=== PATIENT | female | born 1955 | race Caucasian/White ===

== ENCOUNTER 2023-12-17 14:51 | Observation (INO) | payer MEDICARE, SELFPAY ==
--- NOTE | ~2023-12-17 | XR_ITS ---
EXAMINATION: XR chest 1V Exam Date/Time: 12/17/2023 18:35 CDT HISTORY: AMS, rule out infection Comparison: None. RESULT: Lines, tubes, and devices: Multiple surgical clips overlying the right hemithorax. Lungs and pleura: Left lung hyperexpansion. Right hemithorax opacification. Cardiomediastinal silhouette: Rightward shift of the trachea and mediastinum. Other: No acute osseous or upper abdominal finding. Possible renal or gallbladder calcification of t he right upper quadrant. IMPRESSION: No acute cardiopulmonary process. Right hemithorax changes likely from prior right lobectomy, correla te with surgical history. Reviewed, dictated and finalized at location K. IMPRESSION: No acute cardiopulmonary process. Right hemithorax changes likely from prior ri ght lobectomy, correlate with surgical history.
--- NOTE | ~2023-12-17 | US_ITS ---
EXAMINATION: US abdomen limited DATE: 12/19/2023 16:00 INDICATION: Hyperbilirubinemia. TECHNIQUE: Multiple grayscale and Doppler ultrasound images of the abdomen were obtained. COMPARISON: None FINDINGS: The visualized portion of the head of the pancreas is normal. There is a 4.7 cm cyst in the liver. The main portal vein is not visualized. There are gallstones in the gallbladder, which is nor mal in size. Gallbladder wall thickening is noted. There is no sonographic Johnson's sign. The common duct is normal and measures 3 mm. IMPRESSION: 1. Cholelithiasis and gallbladder wall thickening, but no gallbladder distention or sonographic Aidan y sign to suggest acute cholecystitis. Gallbladder wall thickening may be seen with chronic liver dis ease, chronic cholecystitis, or interstitial edema. 2. Main portal vein not visualized. Consider abdomen CT with contrast. Reviewed, dictated and finalized at location E. IMPRESSION: 1. Cholelithiasis and gallbladder wall thickening, but no gallbladder distentio n or sonographic Johnson sign to suggest acute cholecystitis. Gallbladder wall t hickening may be seen with chronic liver disease, chronic cholecystitis, or int erstitial edema. 2. Main portal vein not visualized. Consider abdomen CT with contrast.
--- NOTE | ~2023-12-17 | CT_ITS ---
EXAMINATION: CT brain wo con DATE: 12/17/2023 18:38 INDICATION: AMS . TECHNIQUE: Computed tomography (CT) of the head was performed without intravenous contrast. The mA wa s adjusted according to patient size. Iterative reconstruction technique was employed. The dose-lengt h product was 605.33 mGy-cm. COMPARISON: None. FINDINGS: No acute intracranial hemorrhage or extra-axial fluid collection. No hydrocephalus, mass, or herniation. No acute ischemic infarct. Unremarkable dural venous sinus attenuation. No acute osseous abnormality. The aerated spaces are clear. Mild atrophy and chronic white matter change. Atherosclerotic intracranial calcification. IMPRESSION: No acute intracranial process. Reviewed, dictated and finalized at location K.
[2023-12-17 14:54] VITALS: BP 136/82; PULSE 79; RESP 20; TEMP 36.7; O2SAT 97
[2023-12-17 18:05] VITALS: O2SAT 92
--- NOTE | 2023-12-17 18:16 | ECG_ITS ---
SEE SCANNED COPY FOR CONFIRMED REPORT MTDD
--- NOTE | 2023-12-17 18:16 | ED.GENADULT ---
HPI - General Adult General Chief complaint: Recheck/Abnormal Lab/Rx Stated complaint: abnormal labs Time Seen by Provider: 12/17/23 17:58 Source: patient and family Mode of arrival: ambulatory Limitations: altered mental status History of Present Illness HPI narrative: This is a 68-year-old female with PMH of CKD, diabetes mellitus, cirrhosis who presents to the ED for chief complaint of altered mental status and 2 recent falls. She resides and assisted living. She is here with her daughter who is supplementing history. Daughter states that the patient has been somewhat confused over the past few days. Reports that she has had troubles with daily tasks such as going to the bathroom which is not normal for her. She also reports that patient has been a little bit confused about situation, as well as seeming a bit wobbly. Daughter states nursing staff told her that patient had 2 falls in the last week, 1 of which were she rolled out of bed. There here after getting outpatient labs with an elevated ammonia level. She has an ammonia level on her my chart of 198. Daughter is also concerned that her GFR is decreasing overall. Patient denies any pain. She is not quite sure why she is here. Denies fevers, chills, nausea vomiting, chest pain, back pain, numbness, weakness. Related Data Home Medications Medication Instructions Recorded Confirmed acetaminophen 325 mg tablet 650 mg PO Q6H PRN Pain, Mild 12/17/23 12/17/23 cyanocobalamin (vitamin B-12) 1,000 mcg PO DAILY 12/17/23 12/17/23 1,000 mcg sublingual tablet donepezil 5 mg tablet 5 mg PO HS 12/17/23 12/17/23 folic acid 1 mg tablet 1 mg PO DAILY 12/17/23 12/17/23 furosemide 40 mg tablet 40 mg PO DAILY 12/17/23 12/17/23 lactulose 10 gram/15 mL oral 10 g PO EVERY OTHER DAY 12/17/23 12/17/23 solution (Enulose) metformin 750 mg tablet,extended 750 mg PO BID 12/17/23 12/17/23 release 24 hr metoprolol tartrate 50 mg tablet 50 mg PO BID 12/17/23 12/17/23 potassium chloride 10 mEq 10 meq PO AC 12/17/23 12/17/23 tablet,extended release(part/cryst) risperidone 0.5 mg tablet 0.5 mg PO HS 12/17/23 12/17/23 rosuvastatin 5 mg tablet 1 mg PO DAILY 12/17/23 12/17/23 sitagliptin phosphate 50 mg tablet 50 mg PO AC 12/17/23 12/17/23 (Januvia) Allergies Allergy/AdvReac Type Severity Reaction Status Date / Time No Known Allergies Allergy Verified 12/17/23 23:12 Review of Systems Review of Systems: All systems as dictated in [facility] Social History Social History Alcohol intake: former Substance use: never Substance use type: does not use Do You Feel Safe in your Home?: Yes Lack of Transportation: No Lack of Food: Never True Current Housing: I Have Housing Concerned About Future Housing: No Difficulty Paying Gas/Electric Bills: No Difficulty Paying for Meds: No Currently Unemployed: No Education: High School Diploma/GED Difficulty w/ Childcare or Family Care: No Spiritual care concerns: No Exam Narrative: GENERAL: Well-appearing, well-nourished, and in no acute distress. HEAD: Normocephalic, atraumatic. EYES: PERRLA and EOMI. ENT: Nares clear, no rhinorrhea or epistaxis. Mucous membranes moist. Oropharynx without tonsillar hypertrophy exudate or other lesions. NECK: Supple. No adenopathy or masses. CHEST: No respiratory distress. Clear to auscultation. No wheezes rales or rhonchi HEART: Regular rate and rhythm. No murmur heard. Normal peripheral pulses. ABDOMEN: Soft, nontender, nondistended, normal active bowel sounds. MSK: Normal range of motion. No edema. Positive asterixis bilaterally SKIN: Warm, dry, no rash. No ecchymosis or lacerations. NEURO: Alert and oriented x3-4. She is not quite oriented to place. 5/5 strength and sensation in the upper and lower extremities. No focal deficits. Negative pronator drift bilaterally. PSYCH: Normal mood and affect. Course Vital Signs Vital signs: Vital Signs Tempera
[2023-12-17 18:19] VITALS: O2SAT 95
[2023-12-17 19:41] LABS: Basophils Absolute Auto 0.1 K/mm3 (0.0-0.1); Basophils Percent Auto 0.9 % (0.2-1.2); Eosinophils Percent Auto 0.7 % (0-4.4); Hematocrit 47.5 % (37.0-47.0); Hemoglobin 16.1 g/dL (12.0-15.0); Immature Granulocyte Absolute 0.01 K/mm3 (0.00-0.031); Immature Granulocyte Percent A 0.2 % (0-0.5); Immature Platelet Fraction Pct 2.1 % (0.9-11.2); Lymphocytes Absolute Auto 1.38 K/mm3 (0.9-3.2); Lymphocytes Percent Auto 24.2 % (18.3-44.2); Mean Corpuscular HGB Conc 33.9 g/dl (32-36); Mean Corpuscular Hemoglobin 30.8 pg (26-34); Monocytes Absolute Auto 0.4 K/mm3 (0.1-0.6); Monocytes Percent Auto 6.1 % (2.6-8.5); Neutrophils Absolute Auto 3.9 K/mm3 (1.3-6.7); Neutrophils Percent Auto 67.9 % (45.5-73.1); Platelet Count Result 111 k/mm3 (150-375); Red Blood Count 5.22 M/mm3 (4.2-5.4); Red Cell Distribution Width 13.8 % (11.5-14.5); White Blood Count 5.7 K/mm3 (4.5-10.0)
[2023-12-17 19:52] LABS: Partial Thromboplastin Time 27.2 Seconds (22.3-36.8); Prothrombin Time 13.6 Seconds (11.1-14.7)
[2023-12-17 20:21] LABS: Appearance Urine Cloudy (Clear); Bacteria Urine 4+ /hpf; Bilirubin Urine Negative (Negative); Blood Urine 3+ (Negative); Budding Yeast Urine Present /hpf; Color Urine Dark Yellow (Yellow); Glucose Urine UA Negative (Negative); Ketones Urine Trace mg/dL (Negative); Leukocyte Esterase Ur 2+ LEU/UL (Negative); Need Manual Microscopic Reviewed; Nitrate Urine Positive (Negative); Non Pathogenic Casts 0-2; Protein Urine 1+ mg/dL (Negative); RBC Urine >100 /hpf (0-2); Squamous Epithelial Cell Urine None Seen /hpf (Few); WBC Urine 51-100 /hpf (0-3)
[2023-12-17 20:27] LABS: Alanine Aminotransferase 15 U/L (6-35); Albumin Level 4.2 g/dL (3.5-5.1); Alkaline Phosphatase 67 U/L (38-126); Anion Gap 6 mmol/L (4-12); Aspartate Amino Transferase 23 U/L (14-36); Bilirubin,Total 2.4 mg/dL (0.2-1.3); Blood Urea Nitrogen 14 mg/dL (7-17); Calcium 9.9 mg/dL (8.4-10.2); Carbon Dioxide 36 mmol/L (22-30); Chloride 101 mmol/L (98-107); Creatine Kinase 41 U/L (30-135); Estimated CRCL calculation 52 ml/min; Estimated Glomerular Filt Rate 55; Glucose 113 mg/dL (65-110); Potassium 3.7 mmol/L (3.4-5.0); Sodium 143 mmol/L (137-145)
[2023-12-17 20:28] LABS: Lactic Acid Reflex 1.7 mmol/L (0.7-2.0)
[2023-12-17 20:33] LABS: Add Urine Microscopic? YES
[2023-12-17 20:35] LABS: Ammonia 37 umol/L (9-30)
[2023-12-17 21:00] LABS: Magnesium 1.4 mg/dL (1.6-2.3)
[2023-12-17] MEDS: MAGNESIUM SULF 1 GM/D5W 100 ML 1 GM/100 ML BAG IVPB (21:04)
[2023-12-17] MEDS: LACTULOSE 20 GM/30 ML UDC PO (21:04)
--- NOTE | 2023-12-17 21:07 | PM.IMHP ---
H&P: HPI History of Present Illness Date/Time: 12/17/23 21:07 Chief Complaint: altered mental status Narrative: This is a 68-year-old female with past medical history significant for hepatic cirrhosis, chronic kidney disease, dementia, hypertension, type diabetes mellitus. Patient resides at assisted living facility. was brought to the emergency room due to altered mental status. Daughter had taking her to the primary care physician's office lab work was ordered upon receiving results daughter was asked to bring moment to the emergency room. Patient found to have an elevated ammonia level. Patient is confused delirious unable to provide any history. Preliminary workup was significant for ammonia level of 37 a urinalysis was significant for numerous WBCs present. patient has been admitted for further evaluation management and treatment. EXAMINATION: CT brain wo con DATE: 12/17/2023 18:38 INDICATION: AMS . TECHNIQUE: Computed tomography (CT) of the head was performed without intravenous contrast. The mA was adjusted according to patient size. Iterative reconstruction technique was employed. The dose-length product was 605.33 mGy-cm. COMPARISON: None. FINDINGS: No acute intracranial hemorrhage or extra-axial fluid collection. No hydrocephalus, mass, or herniation. No acute ischemic infarct. Unremarkable dural venous sinus attenuation. No acute osseous abnormality. The? aerated spaces are clear. Mild atrophy and chronic white matter change. Atherosclerotic intracranial calcification. IMPRESSION:? No acute intracranial process. EXAMINATION:? XR chest 1V Exam Date/Time:? 12/17/2023 18:35 CDT HISTORY: AMS, rule out infection ? Comparison:? None. RESULT: Lines, tubes, and devices:? Multiple surgical clips overlying the right hemithorax. Lungs and pleura:? Left lung hyperexpansion. Right hemithorax opacification. Cardiomediastinal silhouette:? Rightward shift of the trachea and mediastinum. Other:? No acute osseous or upper abdominal finding. Possible renal or gallbladder calcification of the right upper quadrant. ? IMPRESSION: No acute cardiopulmonary process. Right hemithorax changes likely from prior right lobectomy, correlate with surgical history. Review of Systems Review of Systems: ROS unobtainable: Yes unobtainable due to mental status ( delirious) [facility] Family History Family History Father Congestive heart failure Mother Congestive heart failure Cerebrovascular accident Sibling Colon cancer Sibling Colon cancer Social History Social History Alcohol intake: former Substance use: never Substance use type: does not use Do You Feel Safe in your Home?: Yes Lack of Transportation: No Lack of Food: Never True Current Housing: I Have Housing Concerned About Future Housing: No Difficulty Paying Gas/Electric Bills: No Difficulty Paying for Meds: No Currently Unemployed: No Education: High School Diploma/GED Difficulty w/ Childcare or Family Care: No Spiritual care concerns: No Meds Home Medications and Allergies Home Medications Medication Instructions Recorded Confirmed Type acetaminophen 325 mg tablet 650 mg PO Q6H PRN Pain, Mild 12/17/23 12/17/23 History cyanocobalamin (vitamin B-12) 1,000 mcg PO DAILY 12/17/23 12/17/23 History 1,000 mcg sublingual tablet donepezil 5 mg tablet 5 mg PO HS 12/17/23 12/17/23 History folic acid 1 mg tablet 1 mg PO DAILY 12/17/23 12/17/23 History furosemide 40 mg tablet 40 mg PO DAILY 12/17/23 12/17/23 History lactulose 10 gram/15 mL oral 10 g PO EVERY OTHER DAY 12/17/23 12/17/23 History solution (Enulose) metformin 750 mg tablet,extended 750 mg PO BID 12/17/23 12/17/23 History release 24 hr metoprolol tartrate 50 mg tablet 50 mg PO BID 12/17/23 12/17/23 History potassium chloride 10 mEq 10 meq PO AC 12/17/23 12/17/23 History tablet,extended release(part/cryst) risperidone 0.5 mg tablet
[2023-12-17] MEDS: THIAMINE 500 MG/NS 100 ML 500 MG/100 ML BAG 200 MG IVPB (22:03)
[2023-12-17 22:31] VITALS: BP 189/102; PULSE 82; RESP 18; TEMP 36.8; O2SAT 93
--- NOTE | 2023-12-17 23:10 | ADMGEN ---
This patient, Mojgan Tong, was admitted to [facility] Surg Room 305-01 at 2224. Patient/family oriented to hospital policies and general routines including ID bracelet, bed and alarms, visiting hours, pain management, procedures, bathroom and other care routines, personal items, smoking policy, room service/diet, and visiting hours. Information on how to activate the Rapid Response Team has been discussed. Patient/Family are encouraged to report perceived risks to care and to ask questions if they do not understand what they are told or what they should do.
[2023-12-17 23:42] VITALS: BP 161/68; PULSE 86; RESP 22; TEMP 36.6; O2SAT 93; BMI 37.0
[2023-12-18 06:00] VITALS: BP 151/82; PULSE 87; RESP 22; TEMP 36.7; O2SAT 90
[2023-12-18 07:39] LABS: Glucose Point of Care 119 mg/dl (65-105)
[2023-12-18 08:00] VITALS: PULSE 79; RESP 20; O2SAT 92
[2023-12-18 10:53] LABS: Basophils Percent Auto 0.7 % (0.2-1.2); Eosinophils Percent Auto 0.5 % (0-4.4); Hematocrit 43.7 % (37.0-47.0); Hemoglobin 14.8 g/dL (12.0-15.0); Immature Granulocyte Absolute 0.03 K/mm3 (0.00-0.031); Immature Granulocyte Percent A 0.5 % (0-0.5); Immature Platelet Fraction Pct 1.6 % (0.9-11.2); Lymphocytes Absolute Auto 1.27 K/mm3 (0.9-3.2); Lymphocytes Percent Auto 22.4 % (18.3-44.2); Mean Corpuscular HGB Conc 33.9 g/dl (32-36); Mean Corpuscular Hemoglobin 30.6 pg (26-34); Mean Corpuscular Volume 90.3 fl (80-100); Mean Platelet Volume 9.4 fl (7.4-10.4); Monocytes Absolute Auto 0.3 K/mm3 (0.1-0.6); Monocytes Percent Auto 5.6 % (2.6-8.5); Neutrophils Percent Auto 70.3 % (45.5-73.1); Red Blood Count 4.84 M/mm3 (4.2-5.4); Red Cell Distribution Width 13.6 % (11.5-14.5); White Blood Count 5.7 K/mm3 (4.5-10.0)
--- NOTE | 2023-12-18 10:54 | PM.IMPN ---
Progress Note: A&P Assessment and Plan (1) Acute UTI: Code(s): N39.0 - Urinary tract infection, site not specified Status: Acute Assessment and Plan: 12/18/23: UA showing 1+ urine protein, trace ketone, 3+ urine blood, positive nitrate, 2+ leukocyte, greater than 100 urine RBCs, 51-100 urine wbc's, 4+ urine bacteria, yeast present. Urine and blood cultures obtained and are pending continue Rocephin (2) Encephalopathy, hepatic: Code(s): K76.82 - Hepatic encephalopathy Status: Acute Assessment and Plan: 12/18/23: likely secondary to Hepatic cirrhosis in the setting of urinary tract infection head CT was negative for any acute intracranial process patient was given 1 dose of lactulose 20 mg while in the ED ammonia level 37 initially, now 49 Continue lactulose 20 mg daily (3) T2DM (type 2 diabetes mellitus): Code(s): E11.9 - Type 2 diabetes mellitus without complications Status: Acute Assessment and Plan: 12/18/23: blood sugars ranging 113-119 will get hemoglobin A1c today Accu-Cheks AC and HS low-dose sliding scale insulin ordered hypoglycemic protocol in place continue to hold metformin restart Januvia (4) Dementia: Code(s): F03.90 - Unspecified dementia, unspecified severity, without behavioral disturbance, psychotic disturbance, mood disturbance, and anxiety Status: Acute Assessment and Plan: 12/18/23: continue donepezil and risperidone Time Spent With Patient Time with patient: 25 - 35 minutes Subjective Date/time seen: 12/18/23 10:54 Interval history: This is a 68-year-old female who presented to the hospital on 12/17/2023 for evaluation altered mental status with history of 2 recent falls. Workup in the hospital included head CT which was negative for any acute intracranial process. Chest x-ray which was negative for any acute cardiopulmonary process. Initial labs revealed a normal white blood cell count of 5.7, EGFR 55, magnesium 1.4, total bili was 2.4, liver enzymes were normal, ammonia level was 37, TSH was 2.39. A UA was obtained which showed 1+ urine protein, trace ketone, 3+ urine blood, positive nitrate, 2+ leukocytes, greater than 100 urine RBCs, 51-100 urine wbc's, 4+ urine protein, 2.0 urine Urobilinogen, yeast present. Blood and urine cultures are pending. Patient was given 1 g of Mag, thiamin, lactulose 20 g, and Rocephin while in the ED. On examination today patient is alert and oriented x3, lying in the bed. She is very hard of hearing. She denies any fever, chills, nausea, vomiting, diarrhea, abdominal pain, chest pain. She endorses shortness of breath however this is all the time. She does have a wound vac to the right foot great toe. Area is red but cool to touch, wound vac working properly. She denies any pain. Labs today showed normal white blood cell count of 5.7, blood sugars ranging 128-151, hemoglobin A1c 5.9, magnesium 1.5, total bili 2.6, ammonia 49. We will continue with Rocephin while awaiting cultures. Review of Systems Review of Systems: All systems reviewed & are unremarkable except as noted in HPI and below Constitutional: Constitutional: Reports as per HPI and Reports no additional constitutional complaints Eyes: Eyes: Reports as per HPI and Reports no additional eye complaints ENT: Reports system reviewed and no additional complaints, except as documented and Reports as per HPI Cardiovascular: Cardiovascular: Reports as per HPI and Reports no additional cardiovascular complaints Respiratory: Respiratory: Reports as per HPI and Reports no additional respiratory complaints Gastrointestinal: Gastrointestinal: Reports as per HPI and Reports no additional gastrointestinal complaints Genitourinary: Genitourinary: Reports no additional female genitourinary complaints and Reports as per HPI Musculoskeletal: Musculoskeletal: Reports no additional musculoskeletal complaints and Reports
[2023-12-18 11:03] LABS: Alanine Aminotransferase 14 U/L (6-35); Albumin Level 3.7 g/dL (3.5-5.1); Alkaline Phosphatase 63 U/L (38-126); Anion Gap 6 mmol/L (4-12); Aspartate Amino Transferase 22 U/L (14-36); Bilirubin,Total 2.6 mg/dL (0.2-1.3); Blood Urea Nitrogen 13 mg/dL (7-17); Calcium 9.2 mg/dL (8.4-10.2); Carbon Dioxide 32 mmol/L (22-30); Chloride 103 mmol/L (98-107); Estimated CRCL calculation 55 ml/min; Estimated Glomerular Filt Rate > 60; Glucose 151 mg/dL (65-110); Potassium 3.5 mmol/L (3.4-5.0); Sodium 141 mmol/L (137-145)
[2023-12-18 11:15] LABS: Ammonia 49 umol/L (9-30)
[2023-12-18 11:22] LABS: Platelet Count Result 95 k/mm3 (150-375); Platelet Estimate Decreased (Adequate); Schistocytes None Seen
[2023-12-18 11:25] LABS: Magnesium 1.5 mg/dL (1.6-2.3)
[2023-12-18 11:35] LABS: Hemoglobin A1C 5.9 % (<5.7)
[2023-12-18] MEDS: FOLIC ACID 1 MG TABLET PO (11:41)
[2023-12-18] MEDS: ROSUVASTATIN 5 MG TABLET PO (11:41)
[2023-12-18] MEDS: CYANOCOBALAMIN 1,000 MCG TABLET 1000 MCG PO (11:41)
[2023-12-18] MEDS: FUROSEMIDE 40 MG TABLET PO (11:41)
[2023-12-18] MEDS: METOPROLOL TARTRATE 50 MG TAB PO ×2 (11:52→20:54)
[2023-12-18 12:49] LABS: Glucose Point of Care 128 mg/dl (65-105)
[2023-12-18 13:57] VITALS: BP 130/54; PULSE 79; RESP 20; TEMP 37.1; O2SAT 92
--- NOTE | 2023-12-18 14:05 | PCPTNOTE ---
Spoke with referring hospitalist, hospitalist KISHORE Panchal to remove bedrest orders.
[2023-12-18 16:41] LABS: Glucose Point of Care 122 mg/dl (65-105)
[2023-12-18 20:27] LABS: Glucose Point of Care 130 mg/dl (65-105)
[2023-12-18 20:54] VITALS: PULSE 74
[2023-12-18] MEDS: risperiDONE 0.5 MG TABLET PO (20:54)
[2023-12-18 21:01] VITALS: BP 138/59; PULSE 79; RESP 13; TEMP 37; O2SAT 95
[2023-12-19 05:11] VITALS: BP 132/61; PULSE 72; RESP 12; TEMP 36.5; O2SAT 90
[2023-12-19] MEDS: SITagliptin PHOSPHATE 50 MG TABLET PO (06:02)
[2023-12-19 07:50] LABS: Glucose Point of Care 114 mg/dl (65-105)
[2023-12-19 09:02] LABS: Basophils Absolute Auto 0.1 K/mm3 (0.0-0.1); Basophils Percent Auto 1.1 % (0.2-1.2); Eosinophils Absolute Auto 0.1 K/mm3 (0-0.3); Eosinophils Percent Auto 1.3 % (0-4.4); Hematocrit 44.1 % (37.0-47.0); Immature Granulocyte Absolute 0.02 K/mm3 (0.00-0.031); Immature Granulocyte Percent A 0.4 % (0-0.5); Immature Platelet Fraction Pct 1.8 % (0.9-11.2); Lymphocytes Absolute Auto 1.44 K/mm3 (0.9-3.2); Lymphocytes Percent Auto 26.4 % (18.3-44.2); Mean Corpuscular Hemoglobin 30.7 pg (26-34); Mean Corpuscular Volume 90.4 fl (80-100); Mean Platelet Volume 9.6 fl (7.4-10.4); Monocytes Absolute Auto 0.4 K/mm3 (0.1-0.6); Monocytes Percent Auto 7.3 % (2.6-8.5); Neutrophils Absolute Auto 3.5 K/mm3 (1.3-6.7); Neutrophils Percent Auto 63.5 % (45.5-73.1); Platelet Count Result 89 k/mm3 (150-375); Red Blood Count 4.88 M/mm3 (4.2-5.4); Red Cell Distribution Width 13.6 % (11.5-14.5); White Blood Count 5.5 K/mm3 (4.5-10.0)
[2023-12-19 09:12] LABS: Alanine Aminotransferase 12 U/L (6-35); Albumin Level 3.4 g/dL (3.5-5.1); Alkaline Phosphatase 63 U/L (38-126); Anion Gap 2 mmol/L (4-12); Aspartate Amino Transferase 22 U/L (14-36); Bilirubin,Total 2.4 mg/dL (0.2-1.3); Blood Urea Nitrogen 13 mg/dL (7-17); Calcium 8.9 mg/dL (8.4-10.2); Carbon Dioxide 33 mmol/L (22-30); Chloride 103 mmol/L (98-107); Estimated CRCL calculation 55 ml/min; Estimated Glomerular Filt Rate > 60; Glucose 104 mg/dL (65-110); Magnesium 1.5 mg/dL (1.6-2.3); Potassium 3.6 mmol/L (3.4-5.0); Sodium 138 mmol/L (137-145)
[2023-12-19 09:34] VITALS: PULSE 86
[2023-12-19] MEDS: CYANOCOBALAMIN 1,000 MCG TABLET 1000 MCG PO (09:34)
[2023-12-19] MEDS: FOLIC ACID 1 MG TABLET PO (09:34)
[2023-12-19] MEDS: METOPROLOL TARTRATE 50 MG TAB PO ×2 (09:34→21:53)
[2023-12-19] MEDS: LACTULOSE 20 GM/30 ML UDC PO (09:35)
[2023-12-19] MEDS: ROSUVASTATIN 5 MG TABLET PO (09:35)
[2023-12-19] MEDS: FUROSEMIDE 40 MG TABLET PO (09:35)
[2023-12-19] MEDS: ENOXAPARIN 40 MG/0.4 ML SYRINGE SUB-Q (09:39)
[2023-12-19 11:42] LABS: Glucose Point of Care 184 mg/dl (65-105)
--- NOTE | 2023-12-19 12:10 | PM.IMPN ---
Progress Note: A&P Assessment and Plan (1) Acute UTI: Code(s): N39.0 - Urinary tract infection, site not specified Status: Acute Assessment and Plan: 12/18/23: UA showing 1+ urine protein, trace ketone, 3+ urine blood, positive nitrate, 2+ leukocyte, greater than 100 urine RBCs, 51-100 urine wbc's, 4+ urine bacteria, yeast present. Urine and blood cultures obtained and are pending continue Rocephin 12/19/23: urine culture showing E coli on preliminary read, blood cultures are showing no growth on preliminary read continue with Rocephin (2) Encephalopathy, hepatic: Code(s): K76.82 - Hepatic encephalopathy Status: Acute Assessment and Plan: 12/18/23: likely secondary to Hepatic cirrhosis in the setting of urinary tract infection head CT was negative for any acute intracranial process patient was given 1 dose of lactulose 20 mg while in the ED ammonia level 37 initially, now 49 Continue lactulose 20 mg daily 12/19/23: continue lactulose daily (3) T2DM (type 2 diabetes mellitus): Code(s): E11.9 - Type 2 diabetes mellitus without complications Status: Acute Assessment and Plan: 12/18/23: blood sugars ranging 113-119 will get hemoglobin A1c today Accu-Cheks AC and HS low-dose sliding scale insulin ordered hypoglycemic protocol in place continue to hold metformin restart Januvia 12/19/23: blood sugars ranging 114-184 continue with current treatment plan (4) Dementia: Code(s): F03.90 - Unspecified dementia, unspecified severity, without behavioral disturbance, psychotic disturbance, mood disturbance, and anxiety Status: Acute Assessment and Plan: 12/18/23: continue donepezil and risperidone 12/19/23: no change to current treatment plan (5) Elevated bilirubin: Code(s): R17 - Unspecified jaundice Status: Acute Assessment and Plan: 12/19/23: bilirubin 2.4 check hepatitis panel ultrasound of abdomen today Time Spent With Patient Time with patient: 25 - 35 minutes Subjective Date/time seen: 12/19/23 12:10 Interval history: 12/18/23: This is a 68-year-old female who presented to the hospital on 12/17/2023 for evaluation altered mental status with history of 2 recent falls. Workup in the hospital included head CT which was negative for any acute intracranial process. Chest x-ray which was negative for any acute cardiopulmonary process. Initial labs revealed a normal white blood cell count of 5.7, EGFR 55, magnesium 1.4, total bili was 2.4, liver enzymes were normal, ammonia level was 37, TSH was 2.39. A UA was obtained which showed 1+ urine protein, trace ketone, 3+ urine blood, positive nitrate, 2+ leukocytes, greater than 100 urine RBCs, 51-100 urine wbc's, 4+ urine protein, 2.0 urine Urobilinogen, yeast present. Blood and urine cultures are pending. Patient was given 1 g of Mag, thiamin, lactulose 20 g, and Rocephin while in the ED. On examination today patient is alert and oriented x3, lying in the bed. She is very hard of hearing. She denies any fever, chills, nausea, vomiting, diarrhea, abdominal pain, chest pain. She endorses shortness of breath however this is all the time. She denies any pain. Labs today showed normal white blood cell count of 5.7, blood sugars ranging 128-151, hemoglobin A1c 5.9, magnesium 1.5, total bili 2.6, ammonia 49. We will continue with Rocephin while awaiting cultures. 12/19/23: No complaints today. Labs today show up platelet count of 89, magnesium 1.5, total bilirubin 2.4, liver enzymes are normal. Urine cultures showing E coli on preliminary read, blood cultures are showing no growth on preliminary read. Patient will continue on Rocephin for now until the final read of her urine culture is back. Will order an ultrasound of her abdomen as well as hepatitis panel considering her bilirubin is elevated. Review of Systems Review of Systems: All systems
[2023-12-19 13:44] LABS: Hepatitis B Surface Antigen Negative (Negative)
[2023-12-19 13:50] LABS: HAV RESULT Negative (Negative); Hepatitis B Core IgM Result Negative (Negative)
[2023-12-19 14:00] VITALS: BP 110/59; PULSE 78; RESP 16; TEMP 36.9; O2SAT 90
[2023-12-19 14:01] LABS: Hepatitis C Virus Antibody Negative (Negative)
[2023-12-19 16:41] LABS: Glucose Point of Care 112 mg/dl (65-105)
[2023-12-19 20:00] VITALS: PULSE 77; RESP 16; O2SAT 93
[2023-12-19 20:05] VITALS: BP 111/54; PULSE 77; RESP 16; TEMP 36.6; O2SAT 93
[2023-12-19 21:29] LABS: Glucose Point of Care 214 mg/dl (65-105)
[2023-12-19 21:53] VITALS: PULSE 77
[2023-12-19] MEDS: risperiDONE 0.5 MG TABLET PO (21:53)
[2023-12-20 05:25] VITALS: BP 97/49; PULSE 74; RESP 20; TEMP 36.4; O2SAT 91
[2023-12-20] MEDS: SITagliptin PHOSPHATE 50 MG TABLET PO (06:16)
[2023-12-20 07:34] LABS: Glucose Point of Care 103 mg/dl (65-105)
[2023-12-20 08:00] VITALS: O2SAT 91
[2023-12-20 08:37] LABS: Basophils Absolute Auto 0.1 K/mm3 (0.0-0.1); Basophils Percent Auto 0.8 % (0.2-1.2); Eosinophils Absolute Auto 0.1 K/mm3 (0-0.3); Eosinophils Percent Auto 0.8 % (0-4.4); Hematocrit 43.9 % (37.0-47.0); Hemoglobin 14.8 g/dL (12.0-15.0); Immature Granulocyte Absolute 0.02 K/mm3 (0.00-0.031); Immature Granulocyte Percent A 0.3 % (0-0.5); Immature Platelet Fraction Pct 2.1 % (0.9-11.2); Lymphocytes Absolute Auto 1.57 K/mm3 (0.9-3.2); Lymphocytes Percent Auto 25.4 % (18.3-44.2); Mean Corpuscular HGB Conc 33.7 g/dl (32-36); Mean Corpuscular Hemoglobin 30.6 pg (26-34); Mean Corpuscular Volume 90.7 fl (80-100); Mean Platelet Volume 9.2 fl (7.4-10.4); Monocytes Absolute Auto 0.4 K/mm3 (0.1-0.6); Monocytes Percent Auto 6.3 % (2.6-8.5); Neutrophils Absolute Auto 4.1 K/mm3 (1.3-6.7); Neutrophils Percent Auto 66.4 % (45.5-73.1); Platelet Count Result 88 k/mm3 (150-375); Red Blood Count 4.84 M/mm3 (4.2-5.4); Red Cell Distribution Width 13.6 % (11.5-14.5); White Blood Count 6.2 K/mm3 (4.5-10.0)
[2023-12-20 08:41] LABS: Alanine Aminotransferase 12 U/L (6-35); Albumin Level 3.6 g/dL (3.5-5.1); Alkaline Phosphatase 63 U/L (38-126); Anion Gap 4 mmol/L (4-12); Aspartate Amino Transferase 22 U/L (14-36); Bilirubin,Total 2.1 mg/dL (0.2-1.3); Blood Urea Nitrogen 14 mg/dL (7-17); Calcium 8.9 mg/dL (8.4-10.2); Carbon Dioxide 31 mmol/L (22-30); Chloride 103 mmol/L (98-107); Estimated CRCL calculation 55 ml/min; Estimated Glomerular Filt Rate > 60; Glucose 99 mg/dL (65-110); Potassium 3.6 mmol/L (3.4-5.0); Sodium 138 mmol/L (137-145)
[2023-12-20 08:43] LABS: Ammonia 33 umol/L (9-30)
--- NOTE | 2023-12-20 08:52 | PM.DS ---
DS: Admitting Diagnosis Discharge Date 12/20/23 Admitting Diagnosis acute UTI hepatic encephalopathy type 2 diabetes mellitus dementia DS: Discharge Diagnosis Discharge Diagnosis (1) Acute UTI: Code(s): N39.0 - Urinary tract infection, site not specified Status: Acute (2) Encephalopathy, hepatic: Code(s): K76.82 - Hepatic encephalopathy Status: Acute (3) T2DM (type 2 diabetes mellitus): Code(s): E11.9 - Type 2 diabetes mellitus without complications Status: Acute (4) Dementia: Code(s): F03.90 - Unspecified dementia, unspecified severity, without behavioral disturbance, psychotic disturbance, mood disturbance, and anxiety Status: Acute (5) Elevated bilirubin: Code(s): R17 - Unspecified jaundice Status: Acute DS: Summary Hospital Course Reason for hospitalization: acute UTI hepatic encephalopathy type 2 diabetes mellitus dementia Hospital Course: 12/18/23: This is a 68-year-old female who presented to the hospital on 12/17/2023 for evaluation altered mental status with history of 2 recent falls.? Workup in the hospital included head CT which was negative for any acute intracranial process.? Chest x-ray which was negative for any acute cardiopulmonary process.? Initial labs revealed a normal white blood cell count of 5.7, EGFR 55, magnesium 1.4, total bili was 2.4, liver enzymes were normal, ammonia level was 37, TSH was 2.39.? A UA was obtained which showed 1+ urine protein, trace ketone, 3+ urine blood, positive nitrate, 2+ leukocytes, greater than 100 urine RBCs, 51-100 urine wbc's, 4+ urine protein, 2.0 urine Urobilinogen, yeast present.? Blood and urine cultures are pending.? Patient was given 1 g of Mag, thiamin, lactulose 20 g, and Rocephin while in the ED. On examination today patient is alert and oriented x3, lying in the bed. She is very hard of hearing. She denies any fever, chills, nausea, vomiting, diarrhea, abdominal pain, chest pain. She endorses shortness of breath however this is all the time. She denies any pain.? Labs today showed normal white blood cell count of 5.7, blood sugars ranging 128-151, hemoglobin A1c 5.9, magnesium 1.5, total bili 2.6, ammonia 49. We will continue with Rocephin while awaiting cultures. 12/19/23: No complaints today.? Labs today show up platelet count of 89, magnesium 1.5,? total bilirubin 2.4, liver enzymes are normal.? Urine cultures showing E coli on preliminary read, blood cultures are showing no growth on preliminary read.? Patient will continue on Rocephin for now until the final read of her urine culture is back.? Will order an ultrasound of her abdomen as well as hepatitis panel considering her bilirubin is elevated. 12/20/23: No new complaints today. Urine culture showing E coli on final read, blood culture showing no growth to date on preliminary read. Rocephin will be changed to cefdinir and patient is stable for discharge home today. She will need to finish her antibiotic and then follow-up with primary care physician in 1 week. ultrasound of abdomen showing a 4.7 cm cyst on the liver, cholelithiasis and gallbladder wall thickening but no gallbladder distension or acute cholecystitis seen. Hepatitis panel was negative. final diagnosis: acute UTI, Elevated bilirubin Status at Discharge Cognitive/behavioral status at discharge: Alert oriented x3 Functional status at discharge: wheelchair bound Overall status at discharge: patient is progressing back to baseline Time Spent with Patient Time attestation: Total time spent providing and/or coordinating discharge services: Time spent: Greater than 30 minutes Exam Narrative: General: In no acute distress, well nourished Head: atraumatic, no encephalopathy Eyes: EOMI, PERRLA, sclera clear ENT: moist mucous membranes, nasal passages clear Neck: supple, no JVD, no adenopathy, trachea midline Cardiac: Normal S1 and S2. RRR, No murmur, gallops or friction ru
[2023-12-20 09:03] VITALS: PULSE 80
[2023-12-20] MEDS: CYANOCOBALAMIN 1,000 MCG TABLET 1000 MCG PO (09:03)
[2023-12-20] MEDS: ROSUVASTATIN 5 MG TABLET PO (09:03)
[2023-12-20] MEDS: FUROSEMIDE 40 MG TABLET PO (09:03)
[2023-12-20] MEDS: METOPROLOL TARTRATE 50 MG TAB PO (09:03)
[2023-12-20] MEDS: LACTULOSE 20 GM/30 ML UDC PO (09:03)
[2023-12-20] MEDS: FOLIC ACID 1 MG TABLET PO (09:03)
[2023-12-20 09:11] VITALS: BP 103/79; PULSE 95
[2023-12-20 11:47] LABS: Glucose Point of Care 129 mg/dl (65-105)
[2023-12-20 13:58] VITALS: BP 125/53; PULSE 75; RESP 16; TEMP 37; O2SAT 91
[2023-12-20 16:56] LABS: Glucose Point of Care 163 mg/dl (65-105)
[2023-12-20 21:14] LABS: Glucose Point of Care 175 mg/dl (65-105)
== END 2023-12-20 21:17 ==
LOC: ANHED 21:24 → ANH3MEDSUR 12-18 06:57
PROVIDERS: Nurse Practitioner Acute Care; Physician Assistant; Admitting Provider Internal Medicine; Emergency Provider Physician Assistant; Visit Provider Internal Medicine
DX: N39.0 Urinary tract infection, site not specified (principal); E80.6 Other disorders of bilirubin metabolism; K76.82 Hepatic encephalopathy; R79.89 Other specified abnormal findings of blood chemistry; K74.60 Unspecified cirrhosis of liver; I12.9 Hypertensive chronic kidney disease with stage 1 through stage 4 chronic kidney disease, or unspecified chronic kidney disease; E11.22 Type 2 diabetes mellitus with diabetic chronic kidney disease; N18.9 Chronic kidney disease, unspecified; F03.90 Unspecified dementia, unspecified severity, without behavioral disturbance, psychotic disturbance, mood disturbance, and anxiety; Z79.84 Long term (current) use of oral hypoglycemic drugs
CPT/HCPCS: 36415; 70450; 71045; 76705; 80053; 80074; 80076; 81001; 82140; 82550; 82948; 83036; 83605; 83735; 84443; 85025; 85055; 85610; 85730; 87040; 87077; 87086; 87088; 87186; 93005; 96365; 96366; 96367; 96372; 96375; 97110; 97161; 97166; 97530; 97535; 99285; A9270; G0378; J0696; J1650; J3411; J3475